=== PATIENT | male | born 1995 | race Caucasian/White ===

== ENCOUNTER 2016-06-23 13:17 | Emergency (ER) | payer OTHER ==
[2016-06-23] MEDS ORDERED: HYDROcodone/Acetaminophen 10/325 mg Tablet ONE (13:35)
[2016-06-23] MEDS ORDERED: Ondansetron ODT 4 MG TAB ONE ×2 (13:35→13:50)
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
== END 2016-06-23 14:44 ==
LOC: NAV ERS 13:17
DX: S02.2XXA Fracture of nasal bones, initial encounter for closed fracture (principal); S00.03XA Contusion of scalp, initial encounter; J45.909 Unspecified asthma, uncomplicated; F31.9 Bipolar disorder, unspecified; Z79.899 Other long term (current) drug therapy; Y04.8XXA Assault by other bodily force, initial encounter
CPT/HCPCS: 70450; 70486; 72125; Q0162